=== PATIENT | male | born 1985 | race African-American/Black ===

== ENCOUNTER 2017-08-05 02:39 | Emergency (ER) | payer OTHER ==
[~2017-08-05] VITALS: Ht 177.8 cm; Wt 117.9 kg
[2017-08-05 02:43] VITALS: BP 150/87
--- NOTE | 2017-08-05 02:45 | NUR ---
TO LOBBY, AMB, VS STABLE, A/W FOR BED, RUDY NOTED
--- NOTE | 2017-08-05 04:57 | NUR ---
32Y/M PT. PRESENTS TO ED WITH C/O COUGH X 1 DAY. HX. ASTHMA, NO MED FOR 1 YR. AAO X4, AMBULATORY WITH STEDAY GAIT. RESPIRATIONS ROOM AIR, EVEN AND UNLABORED. BL LUG CLEAR, C/O NON PRODUCTIVE COUGH. VSS, ER MADE AWARE OF PT. STATUS.
--- NOTE | 2017-08-05 05:35 | NUR ---
Patient discharged with v/s stable. Written and verbal after care instructions given and explained. Patient alert, oriented and verbalized understanding of instructions. Ambulatory with steady gait. All questions addressed prior to discharge. ID band removed. Patient advised to follow up with PMD. Rx of AUGMENTIN 875 MG, CODEINE/PROMETHAZINE 10/6.25 MG/ML given. Patient educated on indication of medication including possible reaction and side effects. Opportunity to ask questions provided and answered.
[2017-08-05 06:06] VITALS: BP 143/78
== END 2017-08-05 05:35 | disposition home or self-care (01) ==
LOC: MED 02:39
DX: R05 Cough (principal); J02.9 Acute pharyngitis, unspecified; R06.2 Wheezing
CPT/HCPCS: 99283